=== PATIENT | female | born 1985 | race American Indian/Alaskan Native ===

== ENCOUNTER → 2018-11-03 | Outpatient (CLI) | payer OTHER ==
[~2018-11-03] MED LIST: AMOX500 PO; AZIT250 PO; BCP'S; CEPH500 PO; HYDACE5 PO; HYDGUAL120 PO; MEDR150I; MEDR150I IM; PROM25 PO; RXAMOX500 PO; RXHYDACE PO; [UNRECOGNIZED DRUG - REMARK]
[2018-11-07 15:07] LABS: CHLAMYDIA TRACHOMATIS, NAA Negative (Negative); HPV 16 Negative (Negative); HPV 18 Negative (Negative); HPV OTHER HR TYPES Negative (Negative); NEISSERIA GONORRHOEAE, NAA Negative (Negative)
== END | disposition home or self-care (01) ==
LOC: LAB SHORT 15:04 → LAB 15:04
PROVIDERS: Obstetrics & Gynecology
DX: Z34.00 Encounter for supervision of normal first pregnancy, unspecified trimester (principal)
CPT/HCPCS: 87491; 87591; 87624; G0123

== ENCOUNTER → 2018-11-28 | Outpatient (CLI) | payer OTHER ==
[2018-11-28 19:02] LABS: Bilirubin, Urine Neg (Neg); Blood, Urine Neg (Neg); Glucose Qualitative, Urine Neg (Neg); Ketones, Urine Neg (Neg); Leukocyte Esterase, Urine Neg (Neg); Nitrite, Urine Neg (Neg); Protein, Urine Neg (Neg); Urobilinogen, Urine NORM (Normal)
[2018-11-28 19:03] LABS: Appearance, Urine Clear (Clear); Color, Urine Yellow (P-Yellow)
== END | disposition home or self-care (01) ==
LOC: LAB 18:37 → LAB SHORT 18:37
PROVIDERS: Obstetrics & Gynecology
DX: Z34.00 Encounter for supervision of normal first pregnancy, unspecified trimester (principal)
CPT/HCPCS: 81003

== ENCOUNTER → 2019-03-08 | Outpatient (CLI) | payer OTHER ==
[2019-03-09 09:44] LABS: Candida species (DNA Probe) Negative (NEGATIVE); G. vaginalis (DNA Probe) Negative (NEGATIVE); T. vaginalis (DNA Probe) Negative (NEGATIVE)
== END | disposition home or self-care (01) ==
LOC: LAB SHORT 16:50 → LAB 16:50
PROVIDERS: Obstetrics & Gynecology
DX: N76.0 Acute vaginitis (principal)
CPT/HCPCS: 87480; 87510; 87660

== ENCOUNTER → 2019-04-18 | Outpatient (CLI) | payer OTHER | END | disposition home or self-care (01) | LOC: LAB 16:15 → LAB SHORT 16:15 | DX: Z34.93 Encounter for supervision of normal pregnancy, unspecified, third trimester (principal) | CPT/HCPCS: 87081; 87653 ==

== ENCOUNTER 2019-05-11 07:17 | Inpatient (IN) | payer OTHER ==
[~2019-05-11] VITALS: Ht 157.5 cm; Wt 72.0 kg
[2019-05-11 09:56] LABS: BASOPHILS ABSOLUTE AUTO 0.06 K/mm3 (0.00-0.23); BASOPHILS PERCENT AUTO 0 % (0-2); EOSINOPHILS ABSOLUTE AUTO 0.04 K/mm3 (0.00-0.68); EOSINOPHILS PERCENT AUTO 0 % (0-6); Hematocrit 39.1 % (33.0-51.0); Hemoglobin 13.4 g/dL (11.5-16.0); IMMATURE GRAN ABSOLUTE AUTO 0.14 K/mm3 (0.00-0.10); IMMATURE GRAN PERCENT AUTO 1 % (0-1); LYMPHOCYTES ABSOLUTE AUTO 1.61 K/mm3 (0.84-5.20); LYMPHOCYTES PERCENT AUTO 12 % (21-46); MONOCYTES ABSOLUTE AUTO 0.79 K/mm3 (0.16-1.47); MONOCYTES PERCENT AUTO 6 % (4-13); Mean Corpuscular HGB 31.8 pg (26.0-34.0); Mean Corpuscular HGB Conc 34.3 g/dL (31.5-36.5); Mean Corpuscular Volume 93 fL (80-100); NEUTROPHILS PERCENT AUTO 81 % (41-73); Platelet Count 175 K/mm3 (150-400); RDW Coefficient Variation 11.9 % (11.7-14.2); RDW Standard Deviation 40.2 fL (35.1-46.3); Red Blood Cell Count 4.21 M/mm3 (3.80-5.20); White Blood Cell Count 13.84 K/mm3 (4.00-11.30)
--- NOTE | 2019-05-11 11:03 | NUR ---
HERE WITH C/O CONTRACTIONS AFTER LEAVING LAST NIGHT. REPORTS PAIN 5/10 NO ROM NO BLOODY SHOW
[2019-05-12 05:51] LABS: Hematocrit 34.4 % (33.0-51.0); Mean Corpuscular HGB 32.2 pg (26.0-34.0); Mean Corpuscular HGB Conc 34.9 g/dL (31.5-36.5); Mean Corpuscular Volume 92 fL (80-100); Platelet Count 173 K/mm3 (150-400); RDW Coefficient Variation 11.6 % (11.7-14.2); RDW Standard Deviation 39.4 fL (35.1-46.3); Red Blood Cell Count 3.73 M/mm3 (3.80-5.20); White Blood Cell Count 15.54 K/mm3 (4.00-11.30)
--- NOTE | 2019-05-12 16:03 | NUR ---
RN ROUNDED ON MOM AND BABY FOR EDUCATION. OMS NIPPLES FLAT AND RETRACT INWARDS WITH COMPRESSION. SHIELD WAS PREVIOUSLY GIVEN TO PT. RN ATTEMPETED TO HELP MOM LATCH NB WITHOUT SHIELD UNSUCCESSFULLY. NB LATCHED WITH SHEILD, APPEARS TO BE PINCHING AND BITING NIPPLE. RN SHOWED MOTHER HOW TO PUT SOME PRESSURE ON CHIN TO OPEN LATCH WIDER, MOTHER STATES SHE CAN FEEL THE DIFFERENCE. RN INSTRUCTED HER TO CONTINUE TO PLACE PRESSURE ON CHIN UNTIL NB OPENS MOUTH MORE EASILY. MOM VERBALIZED UNDERSTANDING AND DENIES ANY FURTHER QUESTIONS OR CONCERNS.
[2019-05-12] MEDS ORDERED: IBUP800 PO (18:53)
--- NOTE | 2019-05-12 19:01 | NUR ---
DISCHARGE INSTRUCTIONS, WRITTEN AND VERBAL, GIVEN TO PARENTS. ANSWERED ALL QUESTIONS AND CONCERNS. IV DISCONTINUED. ALL PERSONAL BELONGINGS RETURNED. FOLLOW UP APPOINTMENT SCHEDULED. PT IS DISCHARGED HOME.
== END 2019-05-12 19:28 | disposition home or self-care (01) | DRG 807 ==
LOC: OBS 07:17 → BC 09:26
PROVIDERS: ADMIT Obstetrics & Gynecology
PROC: 10D07Z6 Extraction of Products of Conception, Vacuum, Via Natural or Artificial Opening (ICD-10-PCS; principal; 2019-05-11)
PROC: 0KQM0ZZ Repair Perineum Muscle, Open Approach (ICD-10-PCS; 2019-05-11)
PROC: 10907ZC Drainage of Amniotic Fluid, Therapeutic from Products of Conception, Via Natural or Artificial Opening (ICD-10-PCS; 2019-05-11)
PROC: 3E0R3BZ Introduction of Anesthetic Agent into Spinal Canal, Percutaneous Approach (ICD-10-PCS; 2019-05-11)
DX: O99.824 Streptococcus B carrier state complicating childbirth (principal); Z37.0 Single live birth; O76 Abnormality in fetal heart rate and rhythm complicating labor and delivery; Z3A.39 39 weeks gestation of pregnancy; O69.81X0 Labor and delivery complicated by cord around neck, without compression, not applicable or unspecified; O70.1 Second degree perineal laceration during delivery
CPT/HCPCS: 36415; 51702; 59025; 85025; 85027; J0290; J1885; J2001; J2210; J2590; J3010; J7120

== ENCOUNTER → 2021-11-25 | Outpatient (CLI) | payer OTHER ==
[~2021-11-25] MED LIST changes: +IBUP800 PO
[2021-11-27 14:10] LABS: HPV 16 Negative (Negative); HPV 18 Negative (Negative); HPV OTHER HR TYPES Negative (Negative)
== END ==
LOC: LAB 15:33 → LAB SHORT 15:33
PROVIDERS: Obstetrics & Gynecology
DX: Z01.419 Encounter for gynecological examination (general) (routine) without abnormal findings (principal)
CPT/HCPCS: 87624; G0123

== ENCOUNTER 2022-04-27 05:58 | Day surgery (SDC) | payer OTHER ==
[~2022-04-27] VITALS: Ht 157.5 cm; Wt 65.6 kg
[~2022-04-27 05:58] MED LIST changes: +CALCIUM 600 +1 EA11 PO; +IBUP200 PO; +L-LYSINE500 M1 PO; +MEDROXYPROGESTERONE IM
--- NOTE | 2022-04-27 06:45 | NUR ---
SERUM HCG DRAWN DUE TO SPECIFIC GRAVITY IN URINE TOO DILATE.
--- NOTE | 2022-04-27 10:23 | NUR ---
ARRIVAL TO UNIT PT ARRIVED FROM PACU ON GURNEY. SLID WITH SLIDE SHEET. IV TO R AC REMOVED ON ARRIVAL. LAP SITES CDI WITH DERMABOND. SAPPHIRE PAD CDI. PT DENIES PAIN AND NAUSEA. VSS ON ROOM AIR. DENIES SHORTNESS OF BREATH. K PAD PROVIDED FOR COMFORT. ICE WATER AND JELLO OFFERED PATIENT TOLERATES. CALL LIGHT IN REACH. PT WILL CALL ONCE SHE NEEDS TO VOID OR IF PAIN BEGINS TO INCREASE.
[2022-04-27] MEDS ORDERED: IBUP400 PO (12:12)
[2022-04-27] MEDS ORDERED: HYDR1TAB94 PO (12:14)
--- NOTE | 2022-04-27 14:38 | NUR ---
DISCHARGE S/P LAP HYSTER PT HAS BEEN UP AND AMBULATING IN THE HALLS, NO DRAINAGE ON SAPPHIRE PAD. TOLERATING PO WELL, NO NAUSEA. LAP SITES REMAIN CDI. PT VOIDING AND DRINKING FLUIDS. PRESCRIPTIONS GIVEN TO PATIENT BEFORE PROCEDURE. IV REMOVED. SITE FREE FROM REDNESS OR SWELLING.
== END 2022-04-27 14:51 | disposition home or self-care (01) ==
LOC: ORSCMMR 05:58 → ORD 07:30 → ORSCMMR 07:30 → SURS 10:21 → ORSCMMR 14:51 → SURS 14:51
PROVIDERS: Obstetrics & Gynecology
PROC: 8E0W4CZ Robotic Assisted Procedure of Trunk Region, Percutaneous Endoscopic Approach (ICD-10-PCS; principal; 2022-04-27 07:30)
PROC: 0UT94ZZ Resection of Uterus, Percutaneous Endoscopic Approach (ICD-10-PCS; principal; 2022-04-27 07:30)
PROC: 0UT74ZZ Resection of Bilateral Fallopian Tubes, Percutaneous Endoscopic Approach (ICD-10-PCS; principal; 2022-04-27 07:30)
DX: N92.0 Excessive and frequent menstruation with regular cycle (principal); Z86.2 Personal history of diseases of the blood and blood-forming organs and certain disorders involving the immune mechanism; N84.0 Polyp of corpus uteri; N83.8 Other noninflammatory disorders of ovary, fallopian tube and broad ligament; F17.210 Nicotine dependence, cigarettes, uncomplicated; K21.9 Gastro-esophageal reflux disease without esophagitis; Z79.899 Other long term (current) drug therapy
CPT/HCPCS: 58571; S2900; 84703; 88307; A9270; J0690; J1100; J1885; J2250; J2370; J2405; J2704; J2795; J3010; J7120